=== PATIENT | male | born 1945 | race American Indian/Alaskan Native ===

== ENCOUNTER 2017-09-16 09:27 | Day surgery (SDC) | payer MEDICARE, MEDICAID ==
[~2017-09-16 09:27] MED LIST: Lactated Ringers 1,000 ML IV SCH; Sodium Chloride 0.9% 2.5 ML Syringe FLUSH PRN
== END 2017-09-16 11:42 | disposition home or self-care (01) ==
LOC: MW.SDS 09:27
PROVIDERS: ATTEND Urology
DX: N48.1 Balanitis (principal); N47.1 Phimosis; Z53.8 Procedure and treatment not carried out for other reasons; Z79.899 Other long term (current) drug therapy
CPT/HCPCS: 54161; J7120

== ENCOUNTER 2018-06-04 07:51 | Day surgery (SDC) | payer MEDICARE, MEDICAID ==
[~2018-06-04 07:51] MED LIST changes: +Sodium Chloride 0.9% 10 ML Syringe FLUSH PRN
[2018-06-04] MEDS ORDERED: Lidocaine 1% 20 ML MDV ONE (10:48)
[2018-06-04] MEDS ORDERED: Midazolam 1 MG/ML 2 ML SDV ONE (11:14)
[2018-06-04] MEDS ORDERED: Midazolam 1 MG/ML 2 ML SDV IVPUSH ONE (11:16)
--- NOTE | 2018-06-04 13:10 | OR ---
SURGEON: Aman Low M.D. DATE OF PROCEDURE: 06/04/2018 PREOPERATIVE DIAGNOSIS: Phimosis. POSTOPERATIVE DIAGNOSIS: Phimosis. OPERATION: Circumcision. DESCRIPTION OF PROCEDURE: The patient is placed in supine position. External genital area was prepped and draped in sterile drapes. He was given 2 mg of Versed IV. A little bit of lidocaine 1% was infiltrated circumferentially behind the glans. Excess foreskin was removed. Skin edges were reapproximated using interrupted 4-0 chromic sutures. Bleeding points were tied with 3-0 chromic prior to closing the skin. The patient tolerated the procedure well. Estimated blood loss was minimal under 5 mL. The patient was moved back to day surgery in good condition. TANIYA / LETITIA /[id number]
== END 2018-06-04 12:40 | disposition home or self-care (01) ==
LOC: MW.SDS 07:51
PROVIDERS: ATTEND Urology
DX: N47.1 Phimosis (principal); Z79.899 Other long term (current) drug therapy
CPT/HCPCS: 54161; J2250; J7120; 88305

== ENCOUNTER 2022-05-09 12:49 | Emergency (ER) | payer MEDICARE, MEDICAID ==
[2022-05-09 13:47] LABS: CORONAVIRUS COVID-19 NAA NEGATIVE (NEGATIVE); INFLUENZA A NAA POSITIVE (NEGATIVE); INFLUENZA B NAA NEGATIVE (NEGATIVE); RESPIRATORY SYNCYTIAL VIR NAA NEGATIVE (NEGATIVE)
== END 2022-05-09 14:01 | disposition left against medical advice (07) ==
LOC: MW.ED 12:49
DX: R06.89 Other abnormalities of breathing (principal); I10 Essential (primary) hypertension; R00.0 Tachycardia, unspecified; Z53.29 Procedure and treatment not carried out because of patient's decision for other reasons; Z79.899 Other long term (current) drug therapy; Z20.822 Contact with and (suspected) exposure to COVID-19
CPT/HCPCS: 0241U; 71045; 93005; 99282

== ENCOUNTER 2022-05-12 07:08 | Inpatient (IN) | payer MEDICARE, MEDICAID ==
[2022-05-12] MEDS ORDERED: Lactated Ringers 1,000 ML IV ONE (07:25)
[2022-05-12] MEDS ORDERED: Albuterol/Ipratropium 3.0-0.5 MG/3 ML Neb Soln NEB STA (07:49)
[2022-05-12] MEDS ORDERED: methylPREDNISolone Sodium Succinate 125 MG/2 ML SDV IVPUSH ONE (07:49)
[2022-05-12 08:25] LABS: CARBON DIOXIDE,CO2 24.9 mmol/L (21.0-32.0); POTASSIUM,K 4.2 mmol/L (3.5-5.1)
[2022-05-12] MEDS ORDERED: Magnesium Sulfate/Water 2 GM in Premix Bag 1 BAG IV ONE (09:02)
[2022-05-12] MEDS ORDERED: Oseltamivir 75 MG Cap PO ONE (09:08)
[2022-05-12 09:44] LABS: CORONAVIRUS COVID-19 NAA NEGATIVE (NEGATIVE); INFLUENZA A NAA POSITIVE (NEGATIVE); INFLUENZA B NAA NEGATIVE (NEGATIVE); RESPIRATORY SYNCYTIAL VIR NAA NEGATIVE (NEGATIVE)
[2022-05-12] MEDS ORDERED: Ondansetron 4 MG/2 ML SDV IVPUSH PRN (11:17)
[2022-05-12] MEDS: Enoxaparin 40 MG/0.4 ML Syringe SUBCUT SCH ×2 (14:15→14:23)
[2022-05-12] MEDS: cefTRIAXone 1 GM in Sodium Chloride 0.9% 50 ML IV SCH (14:15)
[2022-05-12] MEDS: Azithromycin 500 MG in Sodium Chloride 0.9% 250 ML IV SCH (14:53)
[2022-05-12] MEDS: Albuterol/Ipratropium 3.0-0.5 MG/3 ML Neb Soln NEB SCH ×2 (18:03→23:58)
[2022-05-12] MEDS: Oseltamivir Phosphate 30 MG Capsule PO SCH (20:55)
[2022-05-12] MEDS ORDERED: Oseltamivir 75 MG Cap PO SCH (21:00)
[2022-05-12] MEDS: Melatonin 3 MG Tab PO PRN (23:58)
[2022-05-13] MEDS: Albuterol/Ipratropium 3.0-0.5 MG/3 ML Neb Soln NEB SCH ×3 (06:30→17:39)
[2022-05-13] MEDS: predniSONE 20 MG Tab PO SCH (07:28)
[2022-05-13] MEDS: Oseltamivir Phosphate 30 MG Capsule PO SCH ×2 (09:10→20:06)
[2022-05-13] MEDS: cefTRIAXone 1 GM in Sodium Chloride 0.9% 50 ML IV SCH (12:49)
[2022-05-13] MEDS: Azithromycin 500 MG in Sodium Chloride 0.9% 250 ML IV SCH (13:35)
[2022-05-13] MEDS: Enoxaparin 40 MG/0.4 ML Syringe SUBCUT SCH (13:41)
[2022-05-13] MEDS: Melatonin 3 MG Tab PO PRN (20:07)
[2022-05-14] MEDS: Albuterol/Ipratropium 3.0-0.5 MG/3 ML Neb Soln NEB SCH ×3 (00:30→12:17)
[2022-05-14] MEDS ORDERED: Albuterol/Ipratropium 3.0-0.5 MG/3 ML Neb Soln NEB ONE (07:49)
[2022-05-14] MEDS: predniSONE 20 MG Tab PO SCH (08:02)
[2022-05-14] MEDS: Oseltamivir Phosphate 30 MG Capsule PO SCH (08:02)
== END 2022-05-14 13:00 | disposition home or self-care (01) | DRG 193 ==
LOC: MW.ED 07:08 → MW.MS 09:12
PROVIDERS: ADMIT Internal Medicine; ATTEND Internal Medicine
DX: J10.1 Influenza due to other identified influenza virus with other respiratory manifestations (principal); J10.00 Influenza due to other identified influenza virus with unspecified type of pneumonia; J96.01 Acute respiratory failure with hypoxia; F17.210 Nicotine dependence, cigarettes, uncomplicated; Z20.822 Contact with and (suspected) exposure to COVID-19; I10 Essential (primary) hypertension; E66.9 Obesity, unspecified; Z68.23 Body mass index [BMI] 23.0-23.9, adult
CPT/HCPCS: 0241U; 36415; 71045; 80053; 83605; 83735; 85025; 85610; 87040; 93005; 94640; 96361; 96365; 96375; 99285; A9270-GY; J0456; J0696; J1650; J2405; J2930; J3475; J7050; J7120; J7620-GY

== ENCOUNTER 2022-05-20 17:47 | Observation (INO) | payer MEDICARE, MEDICAID ==
[2022-05-20] MEDS ORDERED: Albuterol/Ipratropium 3.0-0.5 MG/3 ML Neb Soln NEB ONE (17:58)
[2022-05-20] MEDS ORDERED: Sodium Chloride 0.9% 10 ML Syringe FLUSH PRN (17:58)
[2022-05-20] MEDS ORDERED: methylPREDNISolone Sodium Succinate 125 MG/2 ML SDV IVPUSH ONE (17:58)
[2022-05-20] MEDS ORDERED: Piperacillin/Tazobactam 3.375 GM in Sodium Chloride 0.9% 50 ML IV ONE (17:58)
[2022-05-20] MEDS ORDERED: Sodium Chloride 0.9% 2.5 ML Syringe FLUSH PRN (17:58)
[2022-05-20] MEDS ORDERED: VANCOmycin 1.5 GM/300 ML 1.5 GM in Premix Bag 1 BAG IV ONE (19:00)
[2022-05-20 19:03] LABS: CORONAVIRUS COVID-19 NAA NEGATIVE (NEGATIVE); INFLUENZA A NAA POSITIVE (NEGATIVE); INFLUENZA B NAA NEGATIVE (NEGATIVE); RESPIRATORY SYNCYTIAL VIR NAA NEGATIVE (NEGATIVE)
[2022-05-20] MEDS ORDERED: Levofloxacin/Dextrose 5%-Water 750 MG in Premix Bag 1 BAG IV SCH (23:00)
[2022-05-20] MEDS: methylPREDNISolone Sodium Succinate 125 MG/2 ML SDV IVPUSH SCH (23:14)
[2022-05-20] MEDS: Oseltamivir Phosphate 30 MG Capsule PO SCH (23:14)
[2022-05-20] MEDS: Albuterol/Ipratropium 3.0-0.5 MG/3 ML Neb Soln NEB SCH (23:14)
[2022-05-20] MEDS: Enoxaparin 40 MG/0.4 ML Syringe SUBCUT SCH (23:22)
[2022-05-21] MEDS: methylPREDNISolone Sodium Succinate 125 MG/2 ML SDV IVPUSH SCH ×3 (06:25→23:29)
[2022-05-21] MEDS: Albuterol/Ipratropium 3.0-0.5 MG/3 ML Neb Soln NEB SCH ×4 (06:44→23:29)
[2022-05-21] MEDS: Oseltamivir Phosphate 30 MG Capsule PO SCH ×2 (08:35→21:38)
[2022-05-21] MEDS ORDERED: Melatonin 3 MG Tab PO PRN (21:02)
[2022-05-21] MEDS: Enoxaparin 40 MG/0.4 ML Syringe SUBCUT SCH (23:33)
[2022-05-22] MEDS: methylPREDNISolone Sodium Succinate 125 MG/2 ML SDV IVPUSH SCH (06:17)
[2022-05-22] MEDS: Albuterol/Ipratropium 3.0-0.5 MG/3 ML Neb Soln NEB SCH (07:16)
[2022-05-22 08:19] LABS: CARBON DIOXIDE,CO2 24.3 mmol/L (21.0-32.0); POTASSIUM,K 3.6 mmol/L (3.5-5.1)
[2022-05-22] MEDS: Oseltamivir Phosphate 30 MG Capsule PO SCH (09:31)
[2022-05-22] MEDS ORDERED: methylPREDNISolone Sodium Succinate 40 MG/1 ML SDV IVPUSH SCH (21:00)
[2022-05-22] MEDS ORDERED: Levofloxacin/Dextrose 5%-Water 250 ML IV SCH (21:00)
[2022-05-22] MEDS ORDERED: Levofloxacin/Dextrose 5%-Water 150 ML IV SCH (22:00)
== END 2022-05-22 10:45 | disposition home or self-care (01) ==
LOC: MW.ED 17:47 → MW.MS 20:51
PROVIDERS: ADMIT Internal Medicine; ATTEND Internal Medicine
DX: J96.91 Respiratory failure, unspecified with hypoxia (principal); I10 Essential (primary) hypertension; Z20.822 Contact with and (suspected) exposure to COVID-19; Z79.899 Other long term (current) drug therapy; Z98.890 Other specified postprocedural states
CPT/HCPCS: 0241U; 36415; 71045; 80048; 80053; 82308; 82803; 83880; 84484; 85025; 93005; 94640; 96365; 96367; 96375; 96376; 99285; A9270; G0378; J1956; J2543; J2930; J3370; J3490; J7620-GY

== ENCOUNTER 2022-10-24 18:20 | Inpatient (IN) | payer MEDICARE, MEDICAID ==
[2022-10-24] MEDS ORDERED: Albuterol/Ipratropium 3.0-0.5 MG/3 ML Neb Soln ONE (18:25)
[2022-10-24] MEDS ORDERED: Albuterol/Ipratropium 3.0-0.5 MG/3 ML Neb Soln NEB ONE (18:30)
[2022-10-24] MEDS ORDERED: Lactated Ringers 1,000 ML IV ONE ×4 (18:43→22:50)
[2022-10-24 18:58] LABS: BASE EXCESS VENOUS -3.1 (-2.0-3.0); PH,VENOUS 7.4 (7.31-7.41)
[2022-10-24 19:00] LABS: BASOPHILS ABSOLUTE AUTO 0.1 K/uL (0.0-0.1); BASOPHILS PERCENT AUTO 0.4 % (0.0-1.5); EOSINOPHILS ABSOLUTE AUTO 0.2 K/uL (0.0-0.7); EOSINOPHILS PERCENT AUTO 1.9 % (0.0-7.0); HEMATOCRIT 38.7 % (38.0-50.0); HEMOGLOBIN 13.1 g/dL (13.0-17.0); LYMPHOCYTES ABSOLUTE AUTO 3.6 K/uL (0.6-2.4); LYMPHOCYTES PERCENT AUTO 29.7 % (16.0-40.0); MEAN CORPUSCULAR HEMOGLOBIN 30.3 pg (27.0-32.0); MEAN CORPUSCULAR HGB CONC 33.9 g/dL (31.0-37.0); MEAN CORPUSCULAR VOLUME 89.4 fL (80.0-98.0); MONOCYTES ABSOLUTE AUTO 1.1 K/uL (0.0-0.8); MONOCYTES PERCENT AUTO 9.2 % (0.0-15.0); NEUTROPHILS ABSOLUTE AUTO 7.2 K/uL (1.4-5.7); NEUTROPHILS PERCENT AUTO 58.8 % (48.0-80.0); NRBC ABSOLUTE 0 K/uL; PLATELET COUNT,PLT 247 K/uL (150-400); RED BLOOD CELL COUNT 4.33 M/uL (4.50-5.90); WHITE BLOOD CELL COUNT,WBC 12.17 K/uL (4.0-11.0)
[2022-10-24 19:16] LABS: INR 1.19 (0.86-1.11)
[2022-10-24] MEDS ORDERED: Piperacillin/Tazobactam 4.5 GM in Sodium Chloride 0.9% 100 ML IV ONE (19:26)
[2022-10-24 19:38] LABS: ALBUMIN 3.3 g/dL (3.4-5.0); BILIRUBIN TOTAL 0.5 mg/dL (0.2-1.0); CALCIUM 8.4 mg/dL (8.5-10.1); CARBON DIOXIDE,CO2 20.6 mmol/L (21.0-32.0); CREATININE 1.4 mg/dL (0.8-1.3); EST CRCL DRUG DOSING (CG) 41.39 mL/min; MAGNESIUM 1.9 mg/dL (1.8-2.4); POTASSIUM,K 4.5 mmol/L (3.5-5.1); PROTEIN TOTAL,TP 6.6 g/dL (6.4-8.2)
[2022-10-24 19:39] LABS: LACTIC ACID 2.4 mmol/L (0.4-2.0)
[2022-10-24] MEDS ORDERED: methylPREDNISolone Sodium Succinate 125 MG/2 ML SDV IVPUSH ONE (20:08)
[2022-10-24 20:20] LABS: APPEARANCE,URINE CLEAR; BILIRUBIN,URINE NEGATIVE (NEGATIVE); COLOR,URINE YELLOW; GLUCOSE,URINE NEGATIVE (NEGATIVE); KETONES,URINE TRACE mg/dL (NEGATIVE); LEUKOCYTE ESTERASE,URINE NEGATIVE (NEGATIVE); NITRITE,URINE NEGATIVE (NEGATIVE); OCCULT BLOOD,URINE SMALL (NEGATIVE); PH,URINE 5.5 (5.0-8.0); PROTEIN,URINE NEGATIVE (NEGATIVE); UROBILINOGEN,URINE 0.2 EU/dL (<2.0)
[2022-10-24 20:39] LABS: BACTERIA,URINE RARE (NEGATIVE); EPITHELIAL CELLS,URINE RARE (NONE-FEW); HYALINE CASTS,URINE 0-1 (0-2/LPF); RBC,URINE 0-2 (0-2/HPF); WBC,URINE 0-2 (0-5/HPF)
[2022-10-24] MEDS ORDERED: Iopamidol 755 MG/ML 500 ML Multipack Bottle IVPUSH STA (20:46)
[2022-10-24] MEDS ORDERED: Ondansetron 4 MG Tab.DIS PO PRN (23:11)
[2022-10-24] MEDS ORDERED: Sennosides/Docusate Sodium 50-8.6 MG Tab PO PRN (23:11)
[2022-10-24] MEDS ORDERED: Ondansetron 4 MG/2 ML SDV IVPUSH PRN (23:11)
[2022-10-24] MEDS ORDERED: Acetaminophen 325 MG Tab PO PRN (23:11)
[2022-10-24] MEDS ORDERED: Albuterol 0.083% 2.5 MG/3 ML Neb Soln NEB PRN (23:11)
[2022-10-24] MEDS ORDERED: Sodium Chloride 0.9% 1,000 ML IV SCH (23:15)
[2022-10-24] MEDS ORDERED: traZODone 50 MG Tab PO PRN ×2 (23:18→23:58)
[2022-10-25 05:46] LABS: HEMATOCRIT 32.3 % (38.0-50.0); LYMPHOCYTES ABSOLUTE AUTO 0.8 K/uL (0.6-2.4); LYMPHOCYTES PERCENT AUTO 11.3 % (16.0-40.0); MEAN CORPUSCULAR HEMOGLOBIN 29.8 pg (27.0-32.0); MEAN CORPUSCULAR HGB CONC 34.1 g/dL (31.0-37.0); MEAN CORPUSCULAR VOLUME 87.5 fL (80.0-98.0); MONOCYTES ABSOLUTE AUTO 0.1 K/uL (0.0-0.8); MONOCYTES PERCENT AUTO 1.1 % (0.0-15.0); NEUTROPHILS ABSOLUTE AUTO 6.5 K/uL (1.4-5.7); NEUTROPHILS PERCENT AUTO 87.6 % (48.0-80.0); NRBC ABSOLUTE 0 K/uL; PLATELET COUNT,PLT 203 K/uL (150-400); RED BLOOD CELL COUNT 3.69 M/uL (4.50-5.90); WHITE BLOOD CELL COUNT,WBC 7.42 K/uL (4.0-11.0)
[2022-10-25 06:42] LABS: CALCIUM 8.2 mg/dL (8.5-10.1); CARBON DIOXIDE,CO2 20.9 mmol/L (21.0-32.0); CREATININE 1.2 mg/dL (0.8-1.3); EST CRCL DRUG DOSING (CG) 46.67 mL/min; MAGNESIUM 1.8 mg/dL (1.8-2.4); POTASSIUM,K 4.5 mmol/L (3.5-5.1); TSH ULTRASENSITIVE 0.67 uIU/mL (0.36-3.74)
[2022-10-25] MEDS ORDERED: Tamsulosin 0.4 MG Cap.ER PO SCH (08:30)
[2022-10-25] MEDS: Pantoprazole 40 MG in Sodium Chloride 0.9% 10 ML IVPUSH SCH ×2 (10:46→17:43)
[2022-10-25] MEDS: Nicotine 14 MG/24 Hr Patch TRDERM SCH (12:31)
[2022-10-25 14:04] LABS: HEMOGLOBIN 10.6 g/dL (13.0-17.0)
[2022-10-26 06:00] LABS: BASOPHILS PERCENT AUTO 0.2 % (0.0-1.5); EOSINOPHILS PERCENT AUTO 0.4 % (0.0-7.0); HEMATOCRIT 30.4 % (38.0-50.0); HEMOGLOBIN 9.8 g/dL (13.0-17.0); LYMPHOCYTES ABSOLUTE AUTO 1.8 K/uL (0.6-2.4); LYMPHOCYTES PERCENT AUTO 18.4 % (16.0-40.0); MEAN CORPUSCULAR HEMOGLOBIN 28.6 pg (27.0-32.0); MEAN CORPUSCULAR HGB CONC 32.2 g/dL (31.0-37.0); MEAN CORPUSCULAR VOLUME 88.6 fL (80.0-98.0); MONOCYTES ABSOLUTE AUTO 0.7 K/uL (0.0-0.8); MONOCYTES PERCENT AUTO 7.3 % (0.0-15.0); NEUTROPHILS ABSOLUTE AUTO 7.3 K/uL (1.4-5.7); NEUTROPHILS PERCENT AUTO 73.7 % (48.0-80.0); NRBC ABSOLUTE 0 K/uL; PLATELET COUNT,PLT 201 K/uL (150-400); RED BLOOD CELL COUNT 3.43 M/uL (4.50-5.90); WHITE BLOOD CELL COUNT,WBC 9.96 K/uL (4.0-11.0)
[2022-10-26 06:23] LABS: CALCIUM 8.7 mg/dL (8.5-10.1); CARBON DIOXIDE,CO2 25.1 mmol/L (21.0-32.0); CREATININE 1.1 mg/dL (0.8-1.3); EST CRCL DRUG DOSING (CG) 50.91 mL/min; PHOSPHORUS 3.2 mg/dL (2.6-4.7); POTASSIUM,K 4.4 mmol/L (3.5-5.1)
[2022-10-26] MEDS: Pantoprazole 40 MG in Sodium Chloride 0.9% 10 ML IVPUSH SCH ×2 (06:29→17:18)
[2022-10-26] MEDS: Nicotine 14 MG/24 Hr Patch TRDERM SCH (08:28)
[2022-10-26] MEDS ORDERED: Bisacodyl 5 MG Tab PO ONE (10:00)
[2022-10-26] MEDS ORDERED: Polyethylene Glycol 3350 Powder 17 GM Packet PO ONE ×2 (12:00→16:00)
[2022-10-26] MEDS ORDERED: Tamsulosin 0.4 MG Cap.ER PO SCH (21:00)
[2022-10-27] MEDS: Pantoprazole 40 MG in Sodium Chloride 0.9% 10 ML IVPUSH SCH ×2 (06:22→06:30)
[2022-10-27] MEDS ORDERED: Propofol 200 MG/20 ML SDV ONE ×2 (08:41→09:10)
[2022-10-27] MEDS ORDERED: Lidocaine 2% 5 ML SDV ONE (08:41)
[2022-10-27 09:37] LABS: BASOPHILS PERCENT AUTO 0.8 % (0.0-1.5); EOSINOPHILS ABSOLUTE AUTO 0.1 K/uL (0.0-0.7); EOSINOPHILS PERCENT AUTO 2.1 % (0.0-7.0); HEMATOCRIT 29.7 % (38.0-50.0); HEMOGLOBIN 9.8 g/dL (13.0-17.0); LYMPHOCYTES ABSOLUTE AUTO 1.2 K/uL (0.6-2.4); LYMPHOCYTES PERCENT AUTO 22.6 % (16.0-40.0); MEAN CORPUSCULAR HEMOGLOBIN 29.3 pg (27.0-32.0); MEAN CORPUSCULAR VOLUME 88.7 fL (80.0-98.0); MONOCYTES ABSOLUTE AUTO 0.5 K/uL (0.0-0.8); MONOCYTES PERCENT AUTO 8.6 % (0.0-15.0); NEUTROPHILS ABSOLUTE AUTO 3.5 K/uL (1.4-5.7); NEUTROPHILS PERCENT AUTO 65.9 % (48.0-80.0); NRBC ABSOLUTE 0 K/uL; PLATELET COUNT,PLT 179 K/uL (150-400); RED BLOOD CELL COUNT 3.35 M/uL (4.50-5.90); WHITE BLOOD CELL COUNT,WBC 5.26 K/uL (4.0-11.0)
[2022-10-27 10:07] LABS: CALCIUM 7.9 mg/dL (8.5-10.1); CARBON DIOXIDE,CO2 24.1 mmol/L (21.0-32.0); CREATININE 1.1 mg/dL (0.8-1.3); EST CRCL DRUG DOSING (CG) 50.91 mL/min; MAGNESIUM 1.7 mg/dL (1.8-2.4); PHOSPHORUS 4.7 mg/dL (2.6-4.7); POTASSIUM,K 4.1 mmol/L (3.5-5.1)
[2022-10-27] MEDS: Nicotine 14 MG/24 Hr Patch TRDERM SCH (11:43)
== END 2022-10-27 12:00 | disposition home or self-care (01) | DRG 378 ==
LOC: MW.ED 18:20 → MW.MS 22:51 → OBSVTOIN 10-26 14:33 → MW.MS 10-26 14:34
PROVIDERS: ADMIT Internal Medicine; ATTEND Internal Medicine
PROC: 0DB68ZX Excision of Stomach, Via Natural or Artificial Opening Endoscopic, Diagnostic (ICD-10-PCS; principal; 2022-10-24)
PROC: 0DBH8ZX Excision of Cecum, Via Natural or Artificial Opening Endoscopic, Diagnostic (ICD-10-PCS; 2022-10-24)
PROC: 0DBL8ZX Excision of Transverse Colon, Via Natural or Artificial Opening Endoscopic, Diagnostic (ICD-10-PCS; 2022-10-24)
DX: K25.4 Chronic or unspecified gastric ulcer with hemorrhage (principal); R42 Dizziness and giddiness; D62 Acute posthemorrhagic anemia; Z20.822 Contact with and (suspected) exposure to COVID-19; E87.20 Acidosis, unspecified; E86.0 Dehydration; I95.9 Hypotension, unspecified; F17.210 Nicotine dependence, cigarettes, uncomplicated; J44.9 Chronic obstructive pulmonary disease, unspecified; G47.00 Insomnia, unspecified; K29.81 Duodenitis with bleeding; K44.9 Diaphragmatic hernia without obstruction or gangrene; K57.90 Diverticulosis of intestine, part unspecified, without perforation or abscess without bleeding; R73.9 Hyperglycemia, unspecified; N40.0 Benign prostatic hyperplasia without lower urinary tract symptoms; I10 Essential (primary) hypertension; K63.5 Polyp of colon; Z98.49 Cataract extraction status, unspecified eye; Z98.890 Other specified postprocedural states; Z79.51 Long term (current) use of inhaled steroids; Z79.899 Other long term (current) drug therapy
CPT/HCPCS: 36415 ×3; 71045; 71275; 80048 ×2; 80053; 81001; 82272; 82533; 82803; 83036; 83605 ×3; 83735 ×3; 83880; 84100; 84443; 84484; 85014; 85018; 85025 ×3; 85379; 85610; 87040; 93005; 96361; 96365; 96375; 97161; 99285; A9270 ×6; C9113 ×3; J2543; J2930; J3490 ×4; J7030; J7120 ×3; Q9967; U0002; 00813; 99100; 99222; 99231; 99232; 99239; 99284; J2704; J7620-GY

== ENCOUNTER 2023-05-28 08:13 | Inpatient (IN) | payer MEDICARE, MEDICAID ==
[2023-05-28] MEDS ORDERED: Sodium Chloride 0.9% 2.5 ML Syringe FLUSH PRN ×2 (08:23→11:39)
[2023-05-28] MEDS ORDERED: Sodium Chloride 0.9% 10 ML Syringe FLUSH PRN ×2 (08:23→11:39)
[2023-05-28] MEDS ORDERED: Albuterol/Ipratropium 3.0-0.5 MG/3 ML Neb Soln NEB ONE (08:37)
[2023-05-28 08:48] LABS: BASOPHILS ABSOLUTE AUTO 0.07 K/uL (0.00-0.20); BASOPHILS PERCENT AUTO 0.9 % (0.0-1.0); EOSINOPHILS PERCENT AUTO 1.2 % (0.0-6.0); HEMATOCRIT 34.5 % (42.0-52.0); HEMOGLOBIN 11.2 g/dL (14.0-18.0); IMMATURE GRAN ABSOLUTE AUTO 0.05 K/uL (0.00-0.05); IMMATURE GRAN PERCENT AUTO 0.6 % (0.0-0.4); LYMPHOCYTES ABSOLUTE AUTO 1.08 K/uL (1.00-4.80); LYMPHOCYTES PERCENT AUTO 13.4 % (24.0-44.0); MEAN CORPUSCULAR HEMOGLOBIN 26.5 pg (28.0-32.0); MEAN CORPUSCULAR HGB CONC 32.5 g/dL (32.0-36.0); MEAN CORPUSCULAR VOLUME 81.6 fL (83.0-99.0); MEAN PLATELET VOLUME 8.6 fL (9.4-12.4); MONOCYTES ABSOLUTE AUTO 0.83 K/uL (0.00-0.80); MONOCYTES PERCENT AUTO 10.3 % (0.0-8.0); NEUTROPHILS ABSOLUTE AUTO 5.91 K/uL (1.80-7.70); NEUTROPHILS PERCENT AUTO 73.6 % (41.0-71.0); PLATELET COUNT,PLT 568 K/uL (150-400); RED BLOOD CELL COUNT 4.23 M/uL (4.52-5.90); WHITE BLOOD CELL COUNT,WBC 8.04 K/uL (3.9-11.3)
[2023-05-28 09:12] LABS: CORONAVIRUS COVID-19 NAA NEGATIVE (NEGATIVE); INFLUENZA A NAA NEGATIVE (NEGATIVE); INFLUENZA B NAA NEGATIVE (NEGATIVE); RESPIRATORY SYNCYTIAL VIR NAA NEGATIVE (NEGATIVE)
[2023-05-28] MEDS ORDERED: Cefepime 2 GM in Sodium Chloride 0.9% 50 ML IV ONE (09:19)
[2023-05-28] MEDS ORDERED: Azithromycin 500 MG in Sodium Chloride 0.9% 250 ML IV ONE (09:19)
[2023-05-28] MEDS ORDERED: Sodium Chloride 0.9% 1,000 ML IV ONE (09:20)
[2023-05-28 09:24] LABS: A/G RATIO 0.5 (0.9-1.6); ALBUMIN 2.3 g/dL (3.4-5.0); BILIRUBIN TOTAL 0.4 mg/dL (0.2-1.0); CALCIUM 8.5 mg/dL (8.5-10.1); CARBON DIOXIDE,CO2 25.2 mmol/L (21.0-32.0); CREATININE 1.1 mg/dL (0.8-1.3); EST CRCL DRUG DOSING (CG) 51.82 mL/min; POTASSIUM,K 3.8 mmol/L (3.5-5.1); PROTEIN TOTAL,TP 6.7 g/dL (6.4-8.2)
[2023-05-28 10:13] LABS: LACTIC ACID 1.5 mmol/L (0.4-2.0)
[2023-05-28] MEDS ORDERED: Acetaminophen 325 MG Tab PO PRN (11:39)
[2023-05-28] MEDS ORDERED: Ondansetron 4 MG/2 ML SDV IVPUSH PRN (11:39)
[2023-05-28] MEDS ORDERED: Albuterol/Ipratropium 3.0-0.5 MG/3 ML Neb Soln NEB PRN (11:39)
[2023-05-28] MEDS ORDERED: Levofloxacin/Dextrose 5%-Water 750 MG in Premix Bag 1 BAG IV SCH ×2 (12:45→14:30)
[2023-05-28] MEDS ORDERED: Nicotine 7 MG/24 Hr Patch TRDERM SCH (13:00)
[2023-05-28] MEDS: Nicotine 7 MG/24 Hr Patch TRDERM SCH (14:30)
[2023-05-28] MEDS ORDERED: Albuterol 8 GM Inhaler INH PRN (16:29)
[2023-05-28] MEDS: Sucralfate 1 GM Tab PO SCH (17:18)
[2023-05-28] MEDS ORDERED: DOXEPIN 25 MG PO SCH (18:00)
[2023-05-28] MEDS ORDERED: Melatonin 3 MG Tab PO PRN (18:54)
[2023-05-28] MEDS ORDERED: Cefepime 2 GM in Sodium Chloride 0.9% 50 ML IV SCH (20:00)
[2023-05-29 06:03] LABS: BASOPHILS ABSOLUTE AUTO 0.07 K/uL (0.00-0.20); EOSINOPHILS ABSOLUTE AUTO 0.14 K/uL (0.00-0.45); EOSINOPHILS PERCENT AUTO 2.1 % (0.0-6.0); HEMOGLOBIN 10.8 g/dL (14.0-18.0); IMMATURE GRAN ABSOLUTE AUTO 0.02 K/uL (0.00-0.05); IMMATURE GRAN PERCENT AUTO 0.3 % (0.0-0.4); LYMPHOCYTES ABSOLUTE AUTO 0.86 K/uL (1.00-4.80); LYMPHOCYTES PERCENT AUTO 12.8 % (24.0-44.0); MEAN CORPUSCULAR HEMOGLOBIN 26.5 pg (28.0-32.0); MEAN CORPUSCULAR HGB CONC 32.7 g/dL (32.0-36.0); MEAN CORPUSCULAR VOLUME 80.9 fL (83.0-99.0); MEAN PLATELET VOLUME 9.3 fL (9.4-12.4); MONOCYTES ABSOLUTE AUTO 0.65 K/uL (0.00-0.80); MONOCYTES PERCENT AUTO 9.7 % (0.0-8.0); NEUTROPHILS ABSOLUTE AUTO 4.97 K/uL (1.80-7.70); NEUTROPHILS PERCENT AUTO 74.1 % (41.0-71.0); PLATELET COUNT,PLT 535 K/uL (150-400); RED BLOOD CELL COUNT 4.08 M/uL (4.52-5.90); WHITE BLOOD CELL COUNT,WBC 6.71 K/uL (3.9-11.3)
[2023-05-29] MEDS: Sucralfate 1 GM Tab PO SCH ×3 (06:23→11:53)
[2023-05-29 06:32] LABS: CALCIUM 8.6 mg/dL (8.5-10.1); CARBON DIOXIDE,CO2 21.7 mmol/L (21.0-32.0); MAGNESIUM 1.9 mg/dL (1.8-2.4); POTASSIUM,K 4.3 mmol/L (3.5-5.1)
[2023-05-29] MEDS ORDERED: Azithromycin 250 MG Tab PO SCH (08:00)
[2023-05-29] MEDS: Nicotine 7 MG/24 Hr Patch TRDERM SCH (08:31)
[2023-05-29] MEDS ORDERED: DEXLANSOPRAZOLE 30 MG PO SCH (09:00)
[2023-05-29] MEDS ORDERED: Tiotropium Bromide 4 GM Inhalation Spray (2.5mcg/1 dose; 10 doses) INH SCH (09:00)
[2023-05-29] MEDS ORDERED: TELMISARTAN 80 MG PO SCH (09:00)
[2023-05-29] MEDS ORDERED: Finasteride 5 MG Tab PO SCH (09:00)
[2023-05-29] MEDS ORDERED: Levofloxacin 750 MG Tab PO SCH (11:00)
== END 2023-05-29 10:50 | disposition home or self-care (01) | DRG 195 ==
LOC: MW.ED 08:13 → MW.MS 11:31
PROVIDERS: ADMIT Family Medicine; ATTEND Family Medicine
DX: J18.9 Pneumonia, unspecified organism (principal); J44.9 Chronic obstructive pulmonary disease, unspecified; I10 Essential (primary) hypertension; N40.0 Benign prostatic hyperplasia without lower urinary tract symptoms; Z20.822 Contact with and (suspected) exposure to COVID-19; F17.210 Nicotine dependence, cigarettes, uncomplicated; Z11.52 Encounter for screening for COVID-19; Z98.49 Cataract extraction status, unspecified eye; Z79.899 Other long term (current) drug therapy
CPT/HCPCS: 0241U; 36415; 71045; 80048; 80053; 83605; 83690; 83735; 83880; 84484; 85025; 87040; 87641; 93005; 94667; 94668; 96365; 99285; A9270-GY; J0456; J0692; J1956; J3490; J7030; J7050; J7620-GY